=== PATIENT | female | born 1950 | race Caucasian/White ===

== ENCOUNTER 2020-11-30 05:54 | Day surgery (SDC) | payer MEDICARE, SELFPAY ==
--- NOTE | 2020-11-28 14:30 | PM.IMHP ---
H&P: HPI History of Present Illness Date/Time: 11/28/20 14:30 69-year-old female presents with a history of a supraglottic mass. Presents for biopsy. Reports no changes in symptoms or medical history. Chief Complaint: Supraglottic mass, hoarse voice, throat pain Review of Systems Constitutional: Constitutional: Denies fatigue, Denies fever(s) and Denies lethargy Eyes: Eyes: Denies blurry vision and Denies change in vision ENT: Reports as per HPI Cardiovascular: Cardiovascular: Denies chest pain Respiratory: Respiratory: Denies cough Endocrine: Endocrine: Denies fatigue Hematologic/Lymphatic: Hematologic/Lymphatic: Denies easy bleeding, Denies easy bruising and Denies lymphadenopathy Allergic/Immunologic: Allergic/Immunologic: Denies seasonal rhinorrhea [facility] Family History Family History Father Lung cancer Sibling Brain cancer Grandparent Heart disease Social History Social History Smoking packs per day: 1.25 Smoking cigarettes per day: 25.0 Years smoked: 36 Smoking pack-years: 45.00 Smoking status: Former smoker Smoking end date: 01/17/03 Alcohol intake: current Drinks per week: 14 Substance use: never Substance use type: does not use Living arrangements: with family Spiritual care concerns: No Meds Home Medications and Allergies Home Medications Medication Instructions Recorded Confirmed Type diltiazem HCl 360 mg 360 mg PO QAM 11/06/20 11/20/20 History capsule,extended release 24 hr gabapentin 300 mg capsule 300 mg PO BID 11/06/20 11/20/20 History lisinopril 40 mg tablet 40 mg PO QAM 11/06/20 11/20/20 History meloxicam 7.5 mg tablet 7.5 mg PO QAM 11/06/20 11/20/20 History Allergies Allergy/AdvReac Type Severity Reaction Status Date / Time No Known Allergies Allergy Verified 11/20/20 12:35 Exam Const: General: cooperative, healthy appearing, comfortable, well developed and alert HENMT: Head: normal to inspection, normocephalic and atraumatic Ears: hearing grossly normal bilaterally, external ears normal, TM's normal bilaterally and EAC's normal General nose exam: Normal external nose present, Normal nares present, No nasal polyps present, Normal nasal mucous membranes and turbinates present and Normal septum present Face and sinus: normal facial exam Mouth: Yes Normal oral and palatal mucosa present, Yes lip normal, Yes tongue normal, Yes oropharynx normal and Yes moist mucous membranes Teeth and gingiva: dentition normal and gingiva normal Throat: posterior oropharynx normal, tonsils normal and uvula midline Eyes: General: appearance normal, both eyes and all related structures Periorbital: periorbital findings normal Eyelids: eyelids normal Conjunctivae: conjunctivae normal Sclera: sclerae normal Neck: Neck: normal visual inspection, full ROM and no lymphadenopathy Thyroid: thyroid normal Lymphatic: no lymphadenopathy noted Resp: Effort & Inspection: normal respiratory effort and able to speak in complete sentences Cardio: Jugular venous distension: no JVD Neuro: Cranial nerves: Yes CN's II-XII intact bilaterally Assessment and Plan Assessment and plan (1) Supraglottic mass: Code(s): J38.7 - Other diseases of larynx Status: Acute Assessment and Plan: Plan is for the operating for direct laryngoscopy and biopsy of supraglottic mass. The risks were discussed in great detail including bleeding infection damage to surrounding structures the need for further procedures change in voice need for tracheotomy. Patient voiced understanding of these risks and agreed. (2) Throat pain: Code(s): R07.0 - Pain in throat Status: Acute
--- NOTE | 2020-11-29 12:13 | WPDANESEPPF ---
Anes - Initial Pre Proc Eval Procedure: Operation Date: 11/30/20 09:00 Proposed Procedures p Direct Laryngoscopy And Biopsy Of Supraglottic Mass - Jian Meier MD Date/Time: 11/29/20 12:13 Surgeon: Jian Meier MD Pre Op Diagnosis: Supraglotic Mass Patient Data Age: 69 Gender: F Height: 28.04 m Weight: 93 kg Allergies Allergy/AdvReac Type Severity Reaction Status Date / Time No Known Allergies Allergy Verified 11/30/20 07:43 Home Medications Medication Instructions Recorded Confirmed Type diltiazem HCl 360 mg 360 mg PO QAM 11/06/20 11/30/20 History capsule,extended release 24 hr gabapentin 300 mg capsule 300 mg PO BID 11/06/20 11/30/20 History lisinopril 40 mg tablet 40 mg PO QAM 11/06/20 11/30/20 History meloxicam 7.5 mg tablet 7.5 mg PO QAM 11/06/20 11/30/20 History Patient hx anesthesia problems: none Family hx anesthesia problems: none PMFSH Past Medical History Medical History (Updated 11/30/20 @ 08:22 by Damion Bailey DO) COPD (chronic obstructive pulmonary disease) DVT (deep venous thrombosis) History of breast cancer History of lung cancer radiation from 08/2019 - 08/2020 scar tissue in lungs but asymptomatic Hypertension Pulmonary embolism following TKA, 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 artery aneurysm coil placed Surgical History Surgical History (Updated 11/29/20 @ 12:13 by Damion Bailey DO) History of mastectomy History of total knee replacement bilateral Family History Family History Father Lung cancer Sibling Brain cancer Grandparent Heart disease Social History Social History Smoking packs per day: 1.25 Smoking cigarettes per day: 25.0 Years smoked: 36 Smoking pack-years: 45.00 Smoking status: Former smoker Smoking end date: 01/17/03 Alcohol intake: current Drinks per week: 14 Substance use: never Substance use type: does not use Living arrangements: with family Spiritual care concerns: No Anes - Eval Final PreProcedure Day of Procedure 11/29/20 12:13 Patient weight: obese Heart: regular rate and rhythm Lungs: clear to auscultation and normal air movement Airway: Mallampati scale class II Neurological: alert and oriented Last oral intake: >/= 8 hours ASA classification: III Emergent: no Anesthetic plan: proceed Anesthesia type and monitoring: general ETT and standard monitoring Informed Consent: The patient's anesthetic plan and its attendant risks and benefits were discussed with the patient/family/POA. Questions were solicited and answers provided to the satisfaction of the patient/family/POA.
[2020-11-30] VITALS (16 sets, daily range): BP systolic 152–180; BP diastolic 60–92; PULSE 53–69; RESP 12–20; TEMP 36.5–36.7; O2SAT 88–98; BMI 39.6
--- NOTE | 2020-11-30 07:02 | WPDHPUPDATE1 ---
History and Physical Update Update Date/Time: 11/30/20 07:02 History and Physical has been reviewed, including an updated exam of the patient. There are NO changes in the patient's condition. Risks, benefits, and alternatives have been discussed and questions answered. Patient agrees to proceed with procedure.
[2020-11-30] MEDS: ACETAMINOPHEN 500 MG TABLET 1000 MG PO (07:42)
[2020-11-30] MEDS: LACTATED RINGERS 1,000 ML 30 ML IV CONT (07:50)
[2020-11-30] MEDS: OXYMETAZOLINE HCL 0.05% NAS 15 ML BTL (*BKC) 1 SPRAY NASAL (09:19)
--- NOTE | 2020-11-30 09:34 | SUR.OPER ---
Frozen section sent with NICOLE Marie and received in pathology by Aaliyah
--- NOTE | 2020-11-30 10:06 | P.OP_ITS ---
Procedure Note - Detailed Date of procedure: 11/30/20 Pre-op diagnosis: Supraglotic Mass Post-op diagnosis: same Procedure performed: Direct laryngoscopy with biopsy of supraglottic mass Description of procedure: The patient was correctly identified and consent was verified in the preoperative holding area. The patient was then brought to the operating room and a time-out was performed. General anesthesia was induced and endotracheal tube was secured the patient's airway. A maxillary tooth mouth guard was placed over the patient's maxillary dentition. A micro Margarita laryngoscope was inserted revealing is supraglottic mass. Lidocaine was applied over the bilateral vocal cords as well as supraglottic region. The supraglottic mass was firm involving the right supraglottic region extending somewhat to midline the left supraglottic arytenoid process also appeared abnormal. Bilateral vocal cord movement was noted and the vocal cord and glottic regions appear normal. Biopsies were taken. 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 Permanent pathology was also sent. Hemostasis was obtained using Afrin- soaked pledgets. It was adequate following the procedure the laryngoscope as well as maxillary tooth mouth guard removed. Care the patient was turned over to Anesthesiology. Was present during wake up in the patient awoke from anesthesia without difficulty. I performed all dictated portions of the procedure. Of note the base of tongue tonsils and other anatomic sub sites appeared free of any lesion ulceration or mass. 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
[2020-11-30] MEDS: oxyCODONE HCL (*CRX) 5 MG TAB IR PO (13:12)
[2020-11-30] MEDS: ALBUTEROL SULFATE NEB 2.5 MG/3 ML INH INHALATION (13:15)
--- NOTE | 2020-11-30 16:59 | SUR.PHASEII ---
RN had trouble weaning patient from 2L to RA. Patient kept desating to 86%-88%. RN got an order for an incentive spirometer and an albuterol treatment since patient forgot her rescue inhaler at home. Patient sated 90%-95% RA after breathing treatment and incentive spirometer. Anesthesia and Dr. Meier made aware of patient's situation and were on board throughout the process.
== END 2020-11-30 14:08 | disposition home or self-care (01) ==
PROVIDERS: PCP Family Medicine; Visit Provider Otolaryngology
PROC: 0CJS8ZZ Inspection of Larynx, Via Natural or Artificial Opening Endoscopic (ICD-10-PCS; CPT 31535; principal; 2020-11-30 09:00)
DX: C32.1 Malignant neoplasm of supraglottis (principal); I10 Essential (primary) hypertension; J44.9 Chronic obstructive pulmonary disease, unspecified; Z85.3 Personal history of malignant neoplasm of breast; Z85.118 Personal history of other malignant neoplasm of bronchus and lung; Z86.711 Personal history of pulmonary embolism; Z92.3 Personal history of irradiation; Z87.891 Personal history of nicotine dependence; E66.9 Obesity, unspecified; Z68.39 Body mass index [BMI] 39.0-39.9, adult
CPT/HCPCS: 31535; 88304; 88305; 88331; 88342; 94640; A9270; J1100; J2405; J2704; J3010; J7120